=== PATIENT | male | born 1995 | race Caucasian/White ===

== ENCOUNTER → 2020-09-20 | Outpatient (CLI) | payer SELFPAY ==
--- NOTE | 2020-09-20 16:34 | Diagnostic Imaging Report ---
INDICATION: LT TESTICULAR PAIN TECHNIQUE: Real-time grayscale sonographic imaging and color vascular evaluation of the scrotum. CORRELATION STUDY: None FINDINGS: RIGHT TESTICLE: 4.3 x 2.0 x 2.8 cm. LEFT TESTICLE: 4.1 x 2.2 x 2.8 cm. The testicles are in normal location and demonstrate homogeneous echotexture. There is vascular flow to the testicles. There is vascularity, heterogeneity and edematous appearance of the left epididymis suggestive of epididymitis. Small left-sided hydrocele. IMPRESSION: 1. Findings suggestive of left-sided epididymitis. Dictated by: Dictated on workstation # [id number]
== END ==
LOC: RAD 15:56
PROVIDERS: ATTEND Nurse Practitioner Family
DX: N50.812 Left testicular pain (principal); N50.89 Other specified disorders of the male genital organs
CPT/HCPCS: 76870